=== PATIENT | female | born 1970 | race African-American/Black ===

== ENCOUNTER 2023-12-02 16:10 | Inpatient (IN) | payer OTHER ==
[2023-12-02] MEDS ORDERED: KETOROLAC TROMETHAMINE 15 MG/ML VIAL ONE (17:59)
[2023-12-02] MEDS: SODIUM CHLORIDE 0.9% 500 ML INFUS.BAG IV ONE (18:06)
[2023-12-02] MEDS: KETOROLAC TROMETHAMINE 15 MG/ML VIAL IVPUSH ONE (18:06)
[2023-12-02 18:20] LABS: HEMATOCRIT 42.9 % (32.4-45.2); HEMOGLOBIN 14.7 GM/dL (10.7-15.3); MCH 34.2 pg (25.7-33.7); MCHC 34.3 g/dl (32.0-36.0); MEAN CELL VOLUME 99.7 fl (80-96); MEAN PLT VOLUME 10.1 fl (7.5-11.1); PLATELET COUNT 176 10^3/uL (134-434); RBC 4.31 M/mm3 (3.60-5.2); RDW 14.3 % (11.6-15.6); WHITE BLOOD COUNT 6.9 K/mm3 (4.0-10.0)
[2023-12-02 18:33] LABS: CHLORIDE 106 mmol/L (98-107); POTASSIUM 3.3 mmol/L (3.5-5.1); SODIUM 139 mmol/L (136-145)
[2023-12-02 18:36] LABS: CALCIUM 9.2 mg/dL (8.5-10.1)
[2023-12-02 18:37] LABS: ALBUMIN 4.4 g/dl (3.4-5.0); ANION GAP 6 mmol/L (4-13); BLOOD UREA NITROGEN 7.2 mg/dL (7-18); CO2 28 mmol/L (21-32); GLUCOSE,RANDOM 97 mg/dL (74-106)
[2023-12-02 18:40] LABS: CREATININE 0.6 mg/dL (0.55-1.3); SGOT/AST 59 U/L (15-37); SGPT/ALT 71 U/L (13-61)
[2023-12-02 18:41] LABS: BILIRUBIN,TOTAL 0.4 mg/dL (0.2-1); TOT PROT 8.6 g/dl (6.4-8.2)
[2023-12-02 18:43] LABS: ALK PHOS 130 U/L (45-117)
[2023-12-02 19:00] LABS: ERYTHROCYTE SEDIMENTATION RATE 17 mm/hr (0-30)
[2023-12-02 20:16] LABS: MAGNESIUM 2.1 mg/dL (1.8-2.4)
[2023-12-02] MEDS ORDERED: ACETAMINOPHEN INJECTION 100 ML IVPB ONE (21:07)
[2023-12-02] MEDS ORDERED: POTASSIUM CHLORIDE ORAL LIQUID 20 MEQ/15 ML ONE (21:18)
[2023-12-02] MEDS: POTASSIUM CHLORIDE ORAL LIQUID 20 MEQ/15 ML PO ONE (21:32)
[2023-12-02 21:38] LABS: POTASSIUM 3.2 mmol/L (3.5-5.1)
[2023-12-02 21:40] LABS: ALBUMIN 4.1 g/dl (3.4-5.0); BLOOD UREA NITROGEN 8.4 mg/dL (7-18); CALCIUM 8.7 mg/dL (8.5-10.1)
[2023-12-02 21:43] LABS: CREATININE 0.5 mg/dL (0.55-1.3)
[2023-12-02 21:45] LABS: BILIRUBIN,TOTAL 0.5 mg/dL (0.2-1); TOT PROT 7.8 g/dl (6.4-8.2)
[2023-12-02] MEDS ORDERED: NICOTINE 7 MG/24 HOURS TOPICAL PATCH TD ONE (23:46)
[2023-12-02] MEDS: NICOTINE 7 MG/24 HOURS TOPICAL PATCH TD SCH (23:51)
[2023-12-03 01:00] VITALS: BMI 25.1
[2023-12-03] MEDS ORDERED: ACETAMINOPHEN 325 MG TABLET (FP) PO PRN ×2 (03:00→11:12)
[2023-12-03] MEDS ORDERED: ACETAMINOPHEN 1000 MG/100 ML BAG IVPB PRN (03:00)
[2023-12-03 07:44] LABS: BASO % 0.5 % (0-2.0); EOS % 0.6 % (0-4.5); HEMOGLOBIN 13.2 GM/dL (10.7-15.3); LYMPH % 33.9 % (8-40); MCH 34.4 pg (25.7-33.7); MCHC 34.6 g/dl (32.0-36.0); MEAN CELL VOLUME 99.5 fl (80-96); MONO % 6.9 % (3.8-10.2); NEUT % 58.1 % (42.8-82.8); PLATELET COUNT 112 10^3/uL (134-434); RBC 3.82 M/mm3 (3.60-5.2); RDW 14.1 % (11.6-15.6); WHITE BLOOD COUNT 5.5 K/mm3 (4.0-10.0)
[2023-12-03 07:57] LABS: POTASSIUM 3.3 mmol/L (3.5-5.1)
[2023-12-03 08:03] LABS: CREATININE 0.5 mg/dL (0.55-1.3)
[2023-12-03] MEDS: ENOXAPARIN NA (PORCINE) 40 MG/0.4 ML DISP.SYRIN SQ SCH (09:10)
[2023-12-03] MEDS: POTASSIUM CHLORIDE TABS 10 MEQ TABLET.ER (FP) PO ONE (11:38)
[2023-12-03 15:40] LABS: BODY FLUID MACROPHAGES 90 %
[2023-12-03 20:04] VITALS: RESP 19
[2023-12-04 08:44] VITALS: BP 144/91; PULSE 64; TEMP 98.9
[2023-12-04] MEDS: POTASSIUM CHLORIDE TABS 20 MEQ TABLET.ER (FP) PO ONE (13:27)
== END 2023-12-04 13:45 | disposition home or self-care (01) | DRG 351 ==
LOC: JER 16:10 → JERBED 21:52 → J6S 12-03 00:31
PROVIDERS: ADMIT Internal Medicine; ATTEND Family Medicine
PROC: 0S993ZX Drainage of Right Hip Joint, Percutaneous Approach, Diagnostic (ICD-10-PCS; principal; 2023-12-03)
DX: M16.11 Unilateral primary osteoarthritis, right hip (principal); M16.12 Unilateral primary osteoarthritis, left hip; M71.551 Other bursitis, not elsewhere classified, right hip; R22.41 Localized swelling, mass and lump, right lower limb; F17.210 Nicotine dependence, cigarettes, uncomplicated; M25.561 Pain in right knee
CPT/HCPCS: 10005; 36415; 72193-TC; 73701-TC-RT; 73721-RT-TC; 80048; 80053; 82945; 83615; 83735; 83986; 84157; 85025; 85027; 85651; 86140; 86611; 87040; 87070; 87075; 87102; 87116; 87205; 87206; 87210; 88108; 88305-TC; 93005; 93010; 99285-25; Q9967

== ENCOUNTER 2024-03-08 09:47 | Day surgery (SDC) | payer OTHER ==
[2024-03-03 13:57] VITALS: BMI 23.0
[2024-03-08] MEDS ORDERED: ONDANSETRON 4 MG/2 ML VIAL IVPUSH PRN ×2 (11:59→17:27)
[2024-03-08] MEDS ORDERED: ROPIVACAINE HCL/PF 100 MG/20 ML VIAL ONE (13:31)
[2024-03-08] MEDS ORDERED: MIDAZOLAM HCL 2 MG/2 ML SINGLE DOSE VIAL ONE ×3 (13:31→15:03)
[2024-03-08] MEDS ORDERED: FENTANYL CITRATE/PF 50 MCG/ML VIAL ONE ×2 (13:31→17:56)
[2024-03-08] MEDS ORDERED: DEXAMETHASONE SOD PHOSPHATE 10 MG/1 ML VIAL ONE (13:31)
[2024-03-08] MEDS ORDERED: VANCOMYCIN 1,000 MG VIAL (RESTRICTED TO ID ONLY) ONE (13:56)
[2024-03-08] MEDS ORDERED: BUPIVACAINE HCL/PF 0.5% (5MG/ML) 10 ML VIAL ONE (13:56)
[2024-03-08] MEDS ORDERED: ONDANSETRON 4 MG/2 ML VIAL ONE (14:10)
[2024-03-08] MEDS ORDERED: TRANEXAMIC ACID 1000 MG/10 ML VIAL ONE ×2 (14:10→16:08)
[2024-03-08] MEDS ORDERED: ceFAZolin SODIUM 1 GM VIAL ONE (14:10)
[2024-03-08] MEDS ORDERED: DEXAMETHASONE SOD PHOSPHATE 4 MG/1 ML VIAL ONE (14:10)
[2024-03-08] MEDS ORDERED: PROPOFOL 40 ML ONE (14:14)
[2024-03-08] MEDS ORDERED: SUCCINYLCHOLINE CHLORIDE 200 MG/10 ML SYRINGE ONE (14:14)
[2024-03-08] MEDS ORDERED: BUPIVICAINE 0.25%/MORPH PF/KETOROLAC - 51ML DISP.SYRINGE IA ONE (15:15)
[2024-03-08] MEDS ORDERED: PROPOFOL 20 ML ONE ×2 (16:06→16:53)
[2024-03-08] MEDS: VANCOMYCIN 1,000 MG VIAL (RESTRICTED TO ID ONLY) IVPB ONE (16:15)
[2024-03-08] MEDS ORDERED: ACETAMINOPHEN INJECTION 100 ML IVPB ONE (16:19)
[2024-03-08] MEDS: BUPIVICAINE 0.25%/MORPH PF/KETOROLAC - 51ML DISP.SYRINGE IA ONE (16:34)
[2024-03-08] MEDS ORDERED: KETOROLAC TROMETHAMINE 30 MG/1 ML VIAL ONE (16:35)
[2024-03-08] MEDS ORDERED: MAG HYDROX/AL HYDROX/SIMETH 30 ML UNIT-DOSE CUP PO PRN (17:27)
[2024-03-08] MEDS ORDERED: MAGNESIUM HYDROX 2400MG/30ML ORAL SUSPENSION 30 ML CUP PO PRN (17:27)
[2024-03-08] MEDS ORDERED: oxyCODONE HCL 5 MG TABLET ONE (17:52)
[2024-03-08] MEDS: oxyCODONE HCL 5 MG TABLET PO PRN ×2 (17:53→22:44)
[2024-03-08] MEDS: LACTATED RINGERS SOLUTION 1,000 ML IV SCH ×2 (17:53→18:32)
[2024-03-08] MEDS: ACETAMINOPHEN 325 MG TABLET (FP) PO PRN (20:33)
[2024-03-08 20:38] VITALS: RESP 18
[2024-03-08] MEDS: SENNOSIDES/DOCUSATE COMBO (SENNA PLUS) TABLET (UD) PO SCH (22:44)
[2024-03-08] MEDS: CEFAZOLIN SODIUM 2 GM in DEXTROSE 5%-WATER 100 ML IVPB SCH (22:44)
[2024-03-08] MEDS: GABAPENTIN 300 MG CAPSULE PO SCH (22:44)
[2024-03-09] MEDS: HYDROmorphone HCl 2 MG/ML VIAL IVPB ONE (01:05)
[2024-03-09] MEDS: LIDOCAINE 5% TOPICAL PATCH TP ONE (01:05)
[2024-03-09 07:47] LABS: HEMOGLOBIN 10.9 G/dL (10.7-15.3); MCH 33.4 pg (25.7-33.7); MEAN CELL VOLUME 104.4 fl (80-96); RBC 3.26 10^6/uL (3.60-5.2); RDW 14.2 % (11.6-15.6); WHITE BLOOD COUNT 10.3 10^3/uL (4.0-10.8)
[2024-03-09 08:00] LABS: CALCIUM 9.2 mg/dl (8.5-10.1); CREATININE 0.7 mg/dl (0.6-1.3); POTASSIUM 3.7 mmol/L (3.5-5.1)
[2024-03-09] MEDS: MULTIVITAMINS (DAILY MVI) TABLET (FP) PO SCH (09:13)
[2024-03-09] MEDS: PANTOPRAZOLE 40 MG TABLET PO SCH (09:13)
[2024-03-09] MEDS: ASPIRIN 81 MG CHEWABLE TABLETS PO SCH (09:13)
[2024-03-09 12:36] VITALS: BP 109/78; PULSE 75; TEMP 98.3
== END 2024-03-09 16:00 | disposition home or self-care (01) ==
LOC: FASUSAT 09:47 → FASU 09:47 → SUATTDRO 09:47 → FM/S 17:55 → FASUSAT 03-09 16:00
PROC: 8E0Y0CZ Robotic Assisted Procedure of Lower Extremity, Open Approach (ICD-10-PCS; 2024-03-08)
PROC: 0SR90JA Replacement of Right Hip Joint with Synthetic Substitute, Uncemented, Open Approach (ICD-10-PCS; principal; 2024-03-08 14:37)
DX: M16.11 Unilateral primary osteoarthritis, right hip (principal)
CPT/HCPCS: 20985; 27130; C1776; S2900; 36415; 73502-TC-RT-FY; 80048; 85027; 88305-TC; 88311-TC; 94760; 97010-GP; 97116-GP; 97162-GP; C1713; C1889; J0131; J1100